=== PATIENT | male | born 1935 | race Caucasian/White ===

== ENCOUNTER → 2017-06-15 | Outpatient (CLI) | payer MEDICARE ==
[~2017-06-15] MED LIST: ACET325 PO; AMLO5 PO; ANTI-ITCH28 GM TOP; ASPI325 PO; ATOR10 PO; ATOR40TA PO; Aspirin EC81 MG PO; CHOL10002 PO; CIPR500 PO; CLOP75 PO; FURO20 PO; Flomax0.4 MG PO; GABA100 PO; HYDCOR1TO TOP; LISI20 PO; Lasix40 MG PO; METPHE18ER PO; NITR100 PO; OMEP20ER PO; PANT40 PO; PARO10 PO; PARO20 PO; POTCHL10ER PO; TAMS.4ER PO; Vitamin B Comple1 EA PO
[2017-06-15 14:27] LABS: Source, Urine Clean Catch
[2017-06-15 14:45] LABS: Bilirubin, Urine Neg (Neg); Blood, Urine 3+ (Neg); Glucose Qualitative, Urine Neg (Neg); Ketones, Urine Neg (Neg); Leukocyte Esterase, Urine 3+ (Neg); Nitrite, Urine Pos (Neg); Protein, Urine 2+ (Neg); Specific Gravity, Urine 1.015 (1.003-1.022); Urobilinogen, Urine NORM (Normal)
[2017-06-15 15:42] LABS: Appearance, Urine Hazy (Clear); Color, Urine Yellow (P-Yellow)
[2017-06-15 15:44] LABS: Bacteria Few /hpf; Squamous Epithelial Cells Mod /hpf (Few); White Blood Cells, Urine 25-50 /hpf (0-5)
== END ==
LOC: LAB 14:25 → LAB SHORT 14:25
PROVIDERS: Nurse Practitioner Family
DX: N39.0 Urinary tract infection, site not specified (principal)
CPT/HCPCS: 81001; 87077; 87086; 87186